=== PATIENT | female | born 1950 | race Caucasian/White ===

== ENCOUNTER 2021-05-11 02:52 | Observation (INO) | payer MEDICARE ==
[2021-05-11] MEDS ORDERED: SODIUM CHLORIDE 0.9% 1,000 ML IV STA (03:01)
--- NOTE | 2021-05-11 03:01 | ED ---
Arrhythmia/Palpitations HPI - General Chief Complaint: Arrhythmia/Palpitations Stated Complaint: Heart Issues Time Seen by Provider: 05/11/21 02:59 Source: patient, EMS, RN notes reviewed, old records reviewed Mode of arrival: EMS Limitations: no limitations - History of Present Illness Initial Comments: This is a 70-year-old female who presents today for evaluation of palpitations heart rate. Patient has no significant medical history but does admit to not following up with any physician primary care. Patient has chest pain currently with anxiety. No drugs or alcohol no other complaints MD Complaint: rapid heart beat, "heart racing", palpitations, irregular heart beat -: hour(s) Context: occurred during rest, awoke with symptoms Associated Symptoms: chest pain, shortness of breath, anxiety Treatments Prior to Arrival: other (none) - Related Data Allergies Allergy/AdvReac Type Severity Reaction Status Date / Time No Known Allergies Allergy Verified 05/11/21 03:00 Review of Systems ROS Statement: Those systems with pertinent positive or pertinent negative responses have been documented in the HPI. ROS Other: All systems not noted in ROS Statement are negative. Past Medical History Past Medical History: No Reported History Additional Past Medical History / Comment(s): last time pt was seen by a physician was 2002 History of Any Multi-Drug Resistant Organisms: None Reported Past Surgical History: Hysterectomy Past Psychological History: No Psychological Hx Reported Smoking Status: Former smoker Past Alcohol Use History: Occasional Past Drug Use History: None Reported General Exam Limitations: no limitations General appearance: alert, in no apparent distress, anxious Head exam: Present: atraumatic, normocephalic, normal inspection Eye exam: Present: normal appearance, PERRL, EOMI. Absent: scleral icterus, conjunctival injection, periorbital swelling ENT exam: Present: normal exam, mucous membranes moist Neck exam: Present: normal inspection. Absent: tenderness, meningismus, lymphadenopathy Respiratory exam: Present: normal lung sounds bilaterally. Absent: respiratory distress, wheezes, rales, rhonchi, stridor Cardiovascular Exam: Present: normal rhythm, tachycardia, normal heart sounds. Absent: systolic murmur, diastolic murmur, rubs, gallop, clicks GI/Abdominal exam: Present: soft, normal bowel sounds. Absent: distended, tenderness, guarding, rebound, rigid Extremities exam: Present: normal inspection, full ROM, normal capillary refill. Absent: tenderness, pedal edema, joint swelling, calf tenderness Back exam: Present: normal inspection Neurological exam: Present: alert, oriented X3, CN II-XII intact Psychiatric exam: Present: normal affect, normal mood Skin exam: Present: warm, dry, intact, normal color. Absent: rash Course Vital Signs 05/11/21 05/11/21 05/11/21 02:55 03:30 04:03 Temperature 98.0 F Pulse Rate 106 H 101 H 105 H Respiratory 18 18 18 Rate Blood Pressure 170/101 152/96 176/107 O2 Sat by Pulse 95 95 96 Oximetry 05/11/21 05/11/21 05/11/21 04:14 04:30 05:00 Temperature Pulse Rate 125 H 89 85 Respiratory 18 18 18 Rate Blood Pressure 174/102 151/92 145/84 O2 Sat by Pulse 94 L 94 L 96 Oximetry - Reevaluation(s) Reevaluation #1: 05/11/21 03:30 Medical records reviewed Reevaluation #2: 05/11/21 05:21 Medical patient has multiple EKGs without any change Reevaluation #3: 05/11/21 05:21 Patient symptoms are improved here in the ER Reevaluation #4: 05/11/21 05:21 Patient informed results and questions answered - Consultations Consultation #1: spoke with [facility] who agreed to admit this patient EKG Findings - EKG Comments: EKG Findings:: EKG shows sinus rhythm of 94 WY 196 QRS 80 QTC 447 - EKG Results: EKG: interpreted by ERMD (EKG shows sinus rhythm 85 WY 228 QRS 74 QTc 461) Medical Decision Making - Medical Decision Making 70 female DF for evaluation of chest pain palpitations also diuresis diaphoresis and shortness of breath. Patient does have sinus tachycardia here in the ER, given rate control blood pressure control which has improved that, patient be admitted for cardiac observation - Lab Data Result diagrams: 05/11/21 03:19 05/11/21 03:19 Lab Results 05/11/21 05/11/21 05/11/21 Range/Units 03:19 03:19 03:19 WBC 9.2 (3.8-10.6) k/uL RBC 5.19 (3.80-5.40) m/uL Hgb 15.5 (11.4-16.0) gm/dL Hct 46.1 H (34.0-46.0) % MCV 88.8 (80.0-100.0) fL MCH 29.8 (25.0-35.0) pg MCHC 33.6 (31.0-37.0) g/dL RDW 14.3 (11.5-15.5) % Plt Count 441 (150-450) k/uL MPV 7.6 Neutrophils % 73 % Lymphocytes % 16 % Monocytes % 5 % Eosinophils % 4 % Basophils % 1 % Neutrophils # 6.7 (1.3-7.7) k/uL Lymphocytes # 1.5 (1.0-4.8) k/uL Monocytes # 0.5 (0-1.0) k/uL Eosinophils # 0.4 (0-0.7) k/uL Basophils # 0.1 (0-0.2) k/uL PT 10.4 (9.0-12.0) sec INR 1.0 (<1.2) APTT 24.5 (22.0-30.0) sec Sodium 138 (137-145) mmol/L Potassium 3.5 (3.5-5.1) mmol/L Chloride 106 (98-107) mmol/L Carbon Dioxide 20 L (22-30) mmol/L Anion Gap 12 mmol/L BUN 17 (7-17) mg/dL Creatinine 0.59 (0.52-1.04) mg/dL Est GFR (CKD-EPI)AfAm >90 (>60 ml/min/1.73 sqM) Est GFR (CKD-EPI)NonAf >90 (>60 ml/min/1.73 sqM) Glucose 130 H (74-99) mg/dL Plasma Lactic Acid Db (0.7-2.0) mmol/L Calcium 9.6 (8.4-10.2) mg/dL Phosphorus 3.1 (2.5-4.5) mg/dL Magnesium 2.0 (1.6-2.3) mg/dL Total Bilirubin 0.6 (0.2-1.3) mg/dL AST 28 (14-36) U/L ALT 22 (4-34) U/L Alkaline Phosphatase 95 (38-126) U/L Troponin I (0.000-0.034) ng/mL NT-Pro-B Natriuret Pep pg/mL Total Protein 7.7 (6.3-8.2) g/dL Albumin 4.4 (3.5-5.0) g/dL 05/11/21 05/11/21 05/11/21 Range/Units 03:19 03:19 03:19 WBC (3.8-10.6) k/uL RBC (3.80-5.40) m/uL Hgb (11.4-16.0) gm/dL Hct (34.0-46.0) % MCV (80.0-100.0) fL MCH (25.0-35.0) pg MCHC (31.0-37.0) g/dL RDW (11.5-15.5) % Plt Count (150-450) k/uL MPV Neutrophils % % Lymphocytes % % Monocytes % % Eosinophils % % Basophils % % Neutrophils # (1.3-7.7) k/uL Lymphocytes # (1.0-4.8) k/uL Monocytes # (0-1.0) k/uL Eosinophils # (0-0.7) k/uL Basophils # (0-0.2) k/uL PT (9.0-12.0) sec INR (<1.2) APTT (22.0-30.0) sec Sodium (137-145) mmol/L Potassium (3.5-5.1) mmol/L Chloride (98-107) mmol/L Carbon Dioxide (22-30) mmol/L Anion Gap mmol/L BUN (7-17) mg/dL Creatinine (0.52-1.04) mg/dL Est GFR (CKD-EPI)AfAm (>60 ml/min/1.73 sqM) Est GFR (CKD-EPI)NonAf (>60 ml/min/1.73 sqM) Glucose (74-99) mg/dL Plasma Lactic Acid Db 1.1 (0.7-2.0) mmol/L Calcium (8.4-10.2) mg/dL Phosphorus (2.5-4.5) mg/dL Magnesium (1.6-2.3) mg/dL Total Bilirubin (0.2-1.3) mg/dL AST (14-36) U/L ALT (4-34) U/L Alkaline Phosphatase (38-126) U/L Troponin I <0.012 (0.000-0.034) ng/mL NT-Pro-B Natriuret Pep 83 pg/mL Total Protein (6.3-8.2) g/dL Albumin (3.5-5.0) g/dL - Radiology Data Radiology results: report reviewed (CT chest is negative for significant acute disease), image reviewed Critical Care Time Critical Care Time: Yes Total Critical Care Time: 31 Disposition Clinical Impression: Chest pain, Hypertension Disposition: ADMITTED IP TO THIS HOSP Condition: Fair Is patient prescribed a controlled substance at d/c from ED?: No Referrals: None,Stated [Primary Care Provider] - 1-2 days
[2021-05-11] MEDS ORDERED: ONDANSETRON 4 MG/2 ML VIAL IVP STA (03:28)
[2021-05-11 03:29] LABS: Basophils # (A) 0.1 k/uL (0-0.2); Basophils % (A) 1 %; Eosinophils # (A) 0.4 k/uL (0-0.7); Eosinophils % (A) 4 %; HCT 46.1 % (34.0-46.0); HGB 15.5 gm/dL (11.4-16.0); Lymphocytes # (A) 1.5 k/uL (1.0-4.8); Lymphocytes % (A) 16 %; MCH 29.8 pg (25.0-35.0); MCHC 33.6 g/dL (31.0-37.0); MCV 88.8 fL (80.0-100.0); Mean Platelet Volume 7.6; Monocytes # (A) 0.5 k/uL (0-1.0); Monocytes % (A) 5 %; Neutrophils # (A) 6.7 k/uL (1.3-7.7); Neutrophils % (A) 73 %; Platelet Count 441 k/uL (150-450); RBC 5.19 m/uL (3.80-5.40); RDW 14.3 % (11.5-15.5); WBC 9.2 k/uL (3.8-10.6)
[2021-05-11 03:40] LABS: ALT 22 U/L (4-34); AST 28 U/L (14-36); African American GFR (CKD) >90 (>60 ml/min/1.73 sqM); Albumin 4.4 g/dL (3.5-5.0); Alkaline Phosphatase 95 U/L (38-126); Anion Gap 12 mmol/L; Blood Urea Nitrogen 17 mg/dL (7-17); Calcium 9.6 mg/dL (8.4-10.2); Carbon Dioxide 20 mmol/L (22-30); Chloride 106 mmol/L (98-107); Glucose 130 mg/dL (74-99); Non-African American GFR(CKD) >90 (>60 ml/min/1.73 sqM); Phosphorus 3.1 mg/dL (2.5-4.5); Potassium 3.5 mmol/L (3.5-5.1); Sodium 138 mmol/L (137-145); Total Bilirubin 0.6 mg/dL (0.2-1.3); Total Protein 7.7 g/dL (6.3-8.2)
[2021-05-11 03:46] LABS: Partial Thromboplastin Time 24.5 sec (22.0-30.0); Prothrombin Time 10.4 sec (9.0-12.0)
[2021-05-11] MEDS ORDERED: LABETALOL 5 MG/ML VIAL MDV IVP STA (03:52)
--- NOTE | 2021-05-11 03:59 | XR ---
EXAMINATION TYPE: XR chest 2V DATE OF EXAM: 05/11/2021 COMPARISON: NONE HISTORY: Weakness TECHNIQUE: 2 view FINDINGS: There is large hiatal hernia. There is no heart failure. Lungs are clear of consolidation. Costophrenic angles are clear. There are chest leads. IMPRESSION: Large hiatal hernia. No acute lung disease.
--- NOTE | 2021-05-11 04:18 | CT ---
EXAMINATION TYPE: CT angio chest DATE OF EXAM: 05/11/2021 COMPARISON: None HISTORY: pain CT DLP: 402.7 mGycm Automated exposure control for dose reduction was used. CONTRAST: Performed with IV Contrast, patient injected with 100 mL of Isovue 370. Images obtained from the thoracic inlet to the diaphragm with IV contrast. There are 3-D post process ed images. The lungs are clear of consolidation. There is minimal subsegmental atelectasis at the lung bases. Th ere is very large hiatal hernia. There is almost intrathoracic stomach. There are multiple cysts in the liver that measure up to 10 cm. Bile ducts are nondilated. Gallbladde r appears normal. Spleen is intact. There is no sign of pancreatic mass. Heart size is normal. There is no pericardial effusion. There is normal contrast opacification of the pulmonary arteries. There are no filling defects. There is no mediastinal adenopathy. There are no h ilar masses. There is normal contrast in the thoracic aorta. There is no aneurysm or dissection. The thoracic spine is intact. IMPRESSION: Large hiatal hernia. No evidence of pulmonary embolism. Large hepatic cysts.
--- NOTE | 2021-05-11 04:31 | CT ---
EXAMINATION TYPE: CT abdomen pelvis w con DATE OF EXAM: 05/11/2021 COMPARISON: None HISTORY: pain CT DLP: 1323.6 mGycm Automated exposure control for dose reduction was used. CONTRAST: Performed with IV Contrast, patient injected with 100 mL of Isovue 370. Images obtained from the diaphragm to the floor the pelvis with IV contrast. Lung bases are clear. There is large hiatal hernia with intrathoracic stomach. There are multiple hep atic cysts that measure up to 10 cm. Bile ducts are not dilated. Gallbladder appears normal. Spleen i s intact. There is no adrenal mass. Stomach is not dilated. Kidneys show satisfactory contrast opacification. T here is no hydronephrosis. Ureters are not dilated. There is no retroperitoneal adenopathy. Bladder d istends smoothly. There is no inguinal hernia. There is no free fluid in the pelvis. There is no evid ence of a pelvic mass. The lumbar vertebra have normal alignment. There is degenerative disc space narrowing in the lumbar s pine and there is degenerative first-degree L4-5 spondylolisthesis. There is no compression fracture. The bony pelvis is intact. Hip joints are intact. There is no mesenteric edema. There is no ascites or free air. There is no bowel obstruction. Appendi x is medial and appears normal. Terminal ileum appears normal. IMPRESSION: No acute abnormality in the abdomen pelvis. Large hepatic cysts. Normal appendix. Large hiatal hernia. There is a L4-5 first-degree spondylolisthesis with moderate bony spinal stenosis at L4-5.
[2021-05-11] MEDS ORDERED: MORPHINE SULFATE 4 MG/ML SYRINGE IV PRN (05:19)
[2021-05-11] MEDS ORDERED: NITROGLYCERIN SL TABS 0.4 MG TAB SUBLINGUAL PRN (05:19)
[2021-05-11] MEDS ORDERED: ASPIRIN 81 MG PO STA (05:19)
[2021-05-11 05:36] LABS: Appearance,Urine Clear (Clear); Bilirubin,Urine Negative (Negative); Blood,Urine Negative (Negative); Color,Urine Light Yellow; Glucose,Urine (UA) Negative (Negative); Ketones,Urine 1+ (Negative); Leukocyte Esterase,Urine Negative (Negative); Nitrite,Urine Negative (Negative); Protein,Urine Negative (Negative); Specific Gravity,Urine 1.009 (1.001-1.035); Urobilinogen,Urine <2.0 mg/dL (<2.0)
[2021-05-11] MEDS ORDERED: METOPROLOL TARTRATE 25 MG TAB PO SCH (09:00)
--- NOTE | 2021-05-11 09:53 | P.CRDCN ---
History of Present Illness History of present illness: HISTORY OF PRESENTING ILLNESS This is a pleasant 70-year-old female past medical history significant for hysterectomy. 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 We have been asked to see in consultation for chest pain. Patient is seen and examined in the emergency department. She presents with 2 episodes of palpitations followed by dizziness, lightheadedness and shortness of breath yesterday. She states she also felt slightly diaphoretic. She had an episode yesterday which she states came on, lasted for a few hours and then resolved. She states last night the episode returned and she presented to the ER for further evaluation. She denies chest pain, weakness, syncope or pre-syncope. She denies symptoms of orthopnea or PND. She denies previous diagnosis of hypertension. Denies history of [place], stroke, coronary artery disease, diabetes. She denies any family history of heart disease. She denies tobacco use or alcohol use. She states she does try to stick to a low sodium, heart healthy diet. She has been stressed lately at home due to a recent move to [place]. On presentation to emergency department patient's blood pressure was 171/101, she was tachycardic HR 106. She was given IV 20mg Labetolol. Her BP has improved, she states she is feeling better. DIAGNOSTICS EKG reveals sinus tachycardia, T wave inversion in lead III. Second EKG with sinus rhythm with first degree AV block. Chest xray large hiatal hernia, no acute cardiopulmonary process. CT chest revealed large hiatal hernia, large hepatic cysts, no pulmonary embolism. Minimal subsegmental atelectasis in the lung bases. CT abdomen and pelvis revealed large hepatic cysts. Normal appendix. Large hiatal hernia. L45 first degree spondylolisthesis with moderate bony spinal stenosis L4 to L5 Laboratory reviewed, WBC 9.2, hemoglobin 15.5, platelets 441, sodium 138, potassium 3.5, BUN 17, serum 0.5, magnesium 2.0, troponin negative 2, proBNP 83, COVID-19 PCR negative. Current home medications include none. REVIEW OF SYSTEMS At the time of my exam: CONSTITUTIONAL: Denies fever or chills. CARDIOVASCULAR: +palpitations +shortness of breath Denies chest pain, orthopnea, PND RESPIRATORY: Denies cough. GASTROINTESTINAL: Denies abdominal pain, diarrhea, constipation, nausea or vomiting. MUSCULOSKELETAL: Denies myalgias. NEUROLOGIC: +lightheadedness, +dizziness Denies numbness, tingling, headache or weakness. ENDOCRINE: Denies fatigue, weight change, polydipsia or polyurina. GENITOURINARY: Denies burning, hematuria or urgency with micturation. HEMATOLOGIC: Denies history of anemia or bleeding. PHYSICAL EXAMINATION Blood pressure 139/95, heart rate 90, afebrile saturations greater than 92% on room air. CONSTITUTIONAL: No apparent distress. HEENT: Head is normocephalic. Pupils are equal, round. Sclerae anicteric. Mucous membranes of the mouth are moist. No JVD. No carotid bruit. CHEST EXAMINATION: Lungs are clear to auscultation. No chest wall tenderness is noted on palpation or with deep breathing. HEART EXAMINATION: Regular rate and rhythm. S1, S2 heard. No murmurs, gallops or rub. ABDOMEN: Soft, nontender. Positive bowel sounds. EXTREMITIES: 2+ peripheral pulses, no lower extremity edema and no calf tenderness. SKIN: warm, dry NEUROLOGIC EXAMINATION: Patient is awake, alert and oriented x3. ASSESSMENT Hypertensive Urgency History of hysterectomy PLAN Obtain 2D echocardiogram and doppler study to assess cardiac structure and function. Start lisinopril 5mg daily Start metoprolol succinate 25mg daily Check TSH Will monitor patient's blood pressure overnight, hopefully discharge in next 24 hours. Patient would benefit from a stress test, this can be done as an outpatient Thank you kindly for this consultation. Nurse Practitioner note has been reviewed, I agree with a documented findings and plan of care. Patient was seen and examined. Past Medical History Past Medical History: No Reported History Additional Past Medical History / Comment(s): last time pt was seen by a danieli an was 2002 History of Any Multi-Drug Resistant Organisms: None Reported Past Surgical History: Hysterectomy Past Psychological History: No Psychological Hx Reported Smoking Status: Former smoker Past Alcohol Use History: Occasional Past Drug Use History: None Reported Medications and Allergies Home Medications Medication Instructions Recorded Confirmed Type No Known Home Medications 05/11/21 05/11/21 History Allergies Allergy/AdvReac Type Severity Reaction Status Date / Time No Known Allergies Allergy Verified 05/11/21 07:03 Physical Exam Vitals: Vital Signs Temp Pulse Resp BP Pulse Ox 05/11/21 06:00 98.7 F 73 18 143/90 96 05/11/21 05:00 85 18 145/84 96 05/11/21 04:30 89 18 151/92 94 L 05/11/21 04:14 125 H 18 174/102 94 L 05/11/21 04:03 105 H 18 176/107 96 05/11/21 03:30 101 H 18 152/96 95 05/11/21 02:55 98.0 F 106 H 18 170/101 95 Intake and Output 05/10/21 05/11/21 05/11/21 22:59 06:59 14:59 Other: Weight 86.183 kg Results 05/11/21 03:19 05/11/21 03:19 Cardiac Enzymes 05/11/21 05/11/21 Range/Units 03:19 03:19 AST 28 (14-36) U/L Troponin I <0.012 (0.000-0.034) ng/mL Coagulation 05/11/21 Range/Units 03:19 PT 10.4 (9.0-12.0) sec APTT 24.5 (22.0-30.0) sec CBC 05/11/21 Range/Units 03:19 WBC 9.2 (3.8-10.6) k/uL RBC 5.19 (3.80-5.40) m/uL Hgb 15.5 (11.4-16.0) gm/dL Hct 46.1 H (34.0-46.0) % Plt Count 441 (150-450) k/uL Comprehensive Metabolic Panel 05/11/21 Range/Units 03:19 Sodium 138 (137-145) mmol/L Potassium 3.5 (3.5-5.1) mmol/L Chloride 106 (98-107) mmol/L Carbon Dioxide 20 L (22-30) mmol/L BUN 17 (7-17) mg/dL Creatinine 0.59 (0.52-1.04) mg/dL Glucose 130 H (74-99) mg/dL Calcium 9.6 (8.4-10.2) mg/dL AST 28 (14-36) U/L ALT 22 (4-34) U/L Alkaline Phosphatase 95 (38-126) U/L Total Protein 7.7 (6.3-8.2) g/dL Albumin 4.4 (3.5-5.0) g/dL Current Medications Generic Name Dose Route Start Last Admin Trade Name Freq PRN Reason Stop Dose Admin Aspirin 325 mg 05/12/21 09:00 Aspirin 325 Mg Tab PO DAILY [facility] Metoprolol Tartrate 25 mg 05/11/21 09:00 Metoprolol Tartrate 25 Mg Tab PO BID [facility] Morphine Sulfate 4 mg 05/11/21 05:19 Morphine Sulfate 4 Mg/Ml Syringe IV Q4HR PRN Chest Pain Nitroglycerin 0.4 mg 05/11/21 05:19 Nitroglycerin Sl Tabs 0.4 Mg Tab SUBLINGUAL Q5M PRN Chest Pain Intake and Output 05/10/21 05/11/21 05/11/21 22:59 06:59 14:59 Other: Weight 86.183 kg 05/11/21 03:19 05/11/21 03:19
--- NOTE | 2021-05-11 10:10 | ECHOF ---
Referral Reason:cp MEASUREMENTS -------- HEIGHT: 165.1 cm WEIGHT: 86.2 kg BP: 143/90 RVIDd: 2.9 cm (< 3.3) IVSd: 1.0 cm (0.6 - 1.1) LVIDd: 4.3 cm (3.9 - 5.3) LVPWd: 1.0 cm (0.6 - 1.1) IVSs: 1.5 cm LVIDs: 2.8 cm LVPWs: 1.5 cm LA Diam: 3.4 cm (2.7 - 3.8) LAESV Index (A-L): 26.65 ml/m Ao Diam: 3.0 cm (2.0 - 3.7) AV Cusp: 2.2 cm (1.5 - 2.6) MV EXCURSION: 15.488 mm (> 18.000) MV EF SLOPE: 88 mm/s (70 - 150) EPSS: 0.4 cm MV E Stefan: 1.01 m/s MV DecT: 189 ms MV A Stefan: 1.30 m/s MV E/A Ratio: 0.78 RAP: 5.00 mmHg RVSP: 28.81 mmHg FINDINGS -------- Sinus rhythm. This was a technically good study. The left ventricular size is normal. Left ventricular wall thickness is normal. Overall left vent ricular systolic function is normal with, an EF between 60 - 65 %. The right ventricle is normal in size. The left atrium is normal in size. The right atrium is normal in size. Interatrial and interventricular septum intact. The aortic valve is trileaflet, and appears structurally normal. No aortic stenosis or regurgitation. There is trace to mild mitral regurgitation. Trace tricuspid regurgitation present. Right ventricular systolic pressure is normal at < 35 mmHg. There is no pulmonic regurgitation present. Large hepatic cyst was seen The aortic root size is normal. Normal inferior vena cava with normal inspiratory collapse consistent with estimated right atrial pre ssure of 5 mmHg. There is no pericardial effusion. CONCLUSIONS -------- 1. The left ventricular size is normal. 2. Left ventricular wall thickness is normal. 3. Overall left ventricular systolic function is normal with, an EF between 60 - 65 %. 4. The aortic valve is trileaflet, and appears structurally normal. No aortic stenosis or regurgitati on. 5. There is trace to mild mitral regurgitation. 6. Trace tricuspid regurgitation present. 7. Large hepatic cyst was seen 8. There is no pericardial effusion. ENVIRONMENTAL LABORATORY TECHNICIAN: Wendy Murry RDCS
--- NOTE | 2021-05-11 11:50 | P.HPIM ---
History of Present Illness Patient is a pleasant 70 the female came in with complaints of palpitations. Patient will also comparing of some mild lightheadedness and dizziness and patient felt anxious. Patient denied any history of coronary artery disease. P atient denied any chest pain to me although as per cardiology patient did complain of chest pain to them. Patient had episodes of palpitations at that time patient had appears to have an episode of SVT. Patient is being started on beta robbie. Patient denied any fever chills nausea vomiting abdominal pain dysuria diarrhea REVIEW OF SYSTEMS: CONSTITUTIONAL: No fever, no malaise, no fatigue. HEENT: No recent visual problems or hearing problems. Denied any sore throat. CARDIOVASCULAR: No chest pain, orthopnea, PND, no syncope. PULMONARY: No shortness of breath, no cough, no hemoptysis. GASTROINTESTINAL: No diarrhea, no nausea, no vomiting, no abdominal pain. NEUROLOGICAL: No headaches, no weakness, no numbness. HEMATOLOGICAL: Denies any bleeding or petechiae. GENITOURINARY: Denies any burning micturition, frequency, or urgency. MUSCULOSKELETAL/RHEUMATOLOGICAL: Denies any joint pain, swelling, or any muscle pain. ENDOCRINE: Denies any polyuria or polydipsia. The rest of the 14-point review of systems is negative. PHYSICAL EXAMINATION: GENERAL: The patient is alert and oriented x3, not in any acute distress. Well developed, well nourished. HEENT: Pupils are round and equally reacting to light. EOMI. No scleral icterus. No conjunctival pallor. Normocephalic, atraumatic. No pharyngeal erythema. No thyromegaly. CARDIOVASCULAR: S1 and S2 present. No murmurs, rubs, or gallops. PULMONARY: Chest is clear to auscultation, no wheezing or crackles. ABDOMEN: Soft, nontender, nondistended, normoactive bowel sounds. No palpable organomegaly. MUSCULOSKELETAL: No joint swelling or deformity. EXTREMITIES: No cyanosis, clubbing, or pedal edema. NEUROLOGICAL: Gross neurological examination did not reveal any focal deficits. SKIN: No rashes. Assessment and plan -Palpitations: Possibly of the supra ventricular tachycardia continue with the metoprolol -Hypertension uncontrolled elevated blood pressure hypertensive urgency patient will be started on TRINI inhibitor patient will monitored overnight echocardiogram will be obtained possibly of discharge tomorrow Cardiology recommending stress test as an outpatient DVT prophylaxis: Ambulation Past Medical History Past Medical History: No Reported History Additional Past Medical History / Comment(s): last time pt was seen by a physician was 2002 History of Any Multi-Drug Resistant Organisms: None Reported Past Surgical History: Hysterectomy Past Psychological History: No Psychological Hx Reported Smoking Status: Former smoker Past Alcohol Use History: Occasional Past Drug Use History: None Reported Medications and Allergies Home Medications Medication Instructions Recorded Confirmed Type No Known Home Medications 05/11/21 05/11/21 History Allergies Allergy/AdvReac Type Severity Reaction Status Date / Time No Known Allergies Allergy Verified 05/11/21 07:03 Physical Exam Vitals: Vital Signs Temp Pulse Resp BP Pulse Ox 05/11/21 09:02 90 159/95 94 L 05/11/21 06:00 98.7 F 73 18 143/90 96 05/11/21 05:00 85 18 145/84 96 05/11/21 04:30 89 18 151/92 94 L 05/11/21 04:14 125 H 18 174/102 94 L 05/11/21 04:03 105 H 18 176/107 96 05/11/21 03:30 101 H 18 152/96 95 05/11/21 02:55 98.0 F 106 H 18 170/101 95 Intake and Output 05/10/21 05/11/21 05/11/21 22:59 06:59 14:59 Other: Weight 86.183 kg Results CBC & Chem 7: 05/11/21 03:19 05/11/21 03:19 Labs: Abnormal Lab Results - Last 24 Hours (Table) 05/11/21 05/11/21 05/11/21 Range/Units 03:19 03:19 03:19 Hct 46.1 H (34.0-46.0) % Carbon Dioxide 20 L (22-30) mmol/L Glucose 130 H (74-99) mg/dL Urine Ketones 1+ H (Negative)
[2021-05-11] MEDS: lisinopriL 5 MG TAB PO SCH (12:45)
[2021-05-11] MEDS: METOPROLOL SUCCINATE (ER) 25 MG TAB.ER.24H PO SCH (12:45)
[2021-05-12 02:19] VITALS: RESP 16
[2021-05-12 06:37] LABS: African American GFR (CKD) >90 (>60 ml/min/1.73 sqM); Anion Gap 6 mmol/L; Blood Urea Nitrogen 13 mg/dL (7-17); Calcium 9.2 mg/dL (8.4-10.2); Carbon Dioxide 24 mmol/L (22-30); Chloride 109 mmol/L (98-107); Glucose 106 mg/dL (74-99); Non-African American GFR(CKD) >90 (>60 ml/min/1.73 sqM); Potassium 4.1 mmol/L (3.5-5.1); Sodium 139 mmol/L (137-145)
[2021-05-12 07:48] VITALS: BP 137/82; PULSE 69; TEMP 98.2
[2021-05-12] MEDS ORDERED: ASPIRIN 325 MG TAB PO SCH (09:00)
[2021-05-12] MEDS ORDERED: ASPIRIN 81 MG PO SCH (09:00)
[2021-05-12] MEDS: METOPROLOL SUCCINATE (ER) 25 MG TAB.ER.24H PO SCH (09:49)
[2021-05-12] MEDS: lisinopriL 5 MG TAB PO SCH (09:49)
[2021-05-12 10:58] LABS: Chol/HDL Ratio 2.8 Ratio; HDL Cholesterol 60.8 mg/dL (40.00-60.00); LDL Cholesterol,Calculated 93.3 mg/dL (0.0-131.0); Triglycerides 79.7 mg/dL (0.00-149.00); VLDL Calculation 15.94 mg/dL (5.00-40.00)
--- NOTE | 2021-05-12 11:06 | P.PN ---
Subjective This is a pleasant 70-year-old female past medical history significant for hysterectomy. 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 We have been asked to see in consultation for chest pain. Patient is seen and examined in the emergency department. She presents with 2 episodes of palpitations followed by dizziness, lightheadedness and shortness of breath. Patient found to be tachycardic and hypertensive. She was found to have an episode of supraventricular tachycardia, she was given 20mg IV Lopressor. She was started on metoprolol succinate 25 mg daily and lisinopril 5 mg daily. Telemetry reviewed patient is a sinus mechanism, no evidence of arrhythmia or tachycardia arrhythmias. Her blood pressure is improved. She states she is feeling much better. She denies any chest pain, lightheadedness, dizziness, palpitations, shortness of breath. Labs reviewed, sodium 139, potassium 4.1, BUN 13, serum creatinine 0.5, troponin negative 3, triglycerides 79, cholesterol 170, LDL 93, HDL 60, TSH within normal limits. Echocardiogram revealed EF 6065 percent, trace to mild mitral regurgitation, trace tricuspid regurgitation. PHYSICAL EXAMINATION Blood pressure 137/82, heart 69, afebrile maintaining oxygen saturations on room air CONSTITUTIONAL: No apparent distress. HEENT: Neck Supple. No JVD. CHEST EXAMINATION: Lungs are clear to auscultation. No chest wall tenderness is noted on palpation or with deep breathing. HEART EXAMINATION: Regular rate and rhythm. S1, S2 heard. No murmurs, gallops or rub. ABDOMEN: Soft, nontender. Positive bowel sounds. EXTREMITIES: 2+ peripheral pulses, no lower extremity edema and no calf tenderness. SKIN: warm, dry NEUROLOGIC EXAMINATION: Patient is awake, alert and oriented x3. ASSESSMENT Hypertensive Urgency SVT History of hysterectomy Dyslipidemia PLAN Continue lisinopril 5mg daily and metoprolol succinate 25mg daily Patient's with 15% 10 year ASCVD risk, will start patient on statin From a cardiology perspective, patient stable and discharged home. Patient will follow up with Dr. Barnett in the office, and undergo a stress test as an outpatient. Nurse Practitioner note has been reviewed, I agree with a documented findings and plan of care. Patient was seen and examined. Objective - Vital Signs Vital signs: Vital Signs Temp 98.2 F 05/12/21 07:00 Pulse 69 05/12/21 07:00 Resp 16 05/12/21 07:00 BP 137/82 05/12/21 07:00 Pulse Ox 95 05/12/21 07:00 Intake & Output 05/11/21 05/12/21 05/12/21 18:59 06:59 18:59 Intake Total 120 180 Balance 120 180 Weight 86.183 kg Intake: Oral 120 180 Other: Voiding Method Toilet # Voids 3 - Labs CBC & Chem 7: 05/11/21 03:19 05/12/21 05:46 Labs: Abnormal Lab Results - Last 24 Hours (Table) 05/12/21 Range/Units 05:46 Chloride 109 H (98-107) mmol/L Glucose 106 H (74-99) mg/dL
--- NOTE | 2021-05-12 22:15 | P.DS ---
Providers Date of admission: 05/11/21 05:20 Attending physician: Corrie Ricketts Consults: 05/11/21 05:19 Consult Physician Urgent Consulting Provider: Boris Young Consult Reason/Comments: htn,cp Do you want consulting provider notified?: Yes Primary care physician: Stated None Hospital Course: Final Diagnosis -Hypertensive urgency -Palpitations due to SVT -History of hysterectomy Discharge Disposition Patient is discharged home in a stable condition. She is cleared by cardiology and was started on lisinopril 5 mg po daily and metoprolol succinate 25 mg po daily. She will follow up with cardiology in the office. She has not been seen in a primary care office since 2002, we recommended a PCP for her. Hospital Course This is a pleasant 70 year old female who presents to the emergency center with complaints of 2 episodes of palpitations followed by dizziness, lightheadedness and shortness of breath. She also complained of chest pain. This spontaneously resolved and then patient experienced a second episode and she came into the ER. Patient recently moved to the [facility], and does not follow with a primary care physician. She denies any significant cardiac medical history. She does not smoke or drink, and denies any illicit substance use. Her past medical history is significant for hysterectomy. Labs on admission show a unremarkable blood count panel, hematocrit is elevated to 46.1. CO2 was 20 on admission, normalized to 24. Glucose was 130 and 106 respectively. We would recommend follow up with an A1C outpatient. Troponins were negative x 3. Pro BNP level was 83. TSH is on the lower side of normal at 0.878. Cholesterol panel includes a cholesterol level of 170, triglycerides of 79, LDL 93.3, HDL 60.080. Urinalysis shows 1+ ketones. COVID not detected. Chest xray is negative for acute lung disease, shows a large hiatal hernia. Chest CTA shows large hiatal hernia, large hepatic cysts, and no evidence for PE. Abdomen/Pelvis CT: no acute abnormality in the abdomen pelvis. Echocardiogram shows an EF of 60 to 65% with trace mild and trace tricuspid regurgitation. Patient did have an episode of SVT in the EC and was treated with IV lopressor and started on metoprolol succinate 25 mg po daily as well as lisinopril 5 mg po daily. Patient was cleared by cardiology who recommended to start patient on a statin and she will follow up in the office. Recommendations for a stress test outpatient. 05/12/2021 Patient evaluted today the bedside. She is alert and oriented x3. Denies chest pain, chest pressure, palpitations. She denies and cough or shortness of breath. Lungs are clear to auscultation, S1 and S2 heard. Focal Neurological exam is negative. Patient is cleared by cardiology for discharge. Vital signs today show a BP of 137/82, Heart rate of 69, temp of 98.2, and she is 95% on room air. Please see medication reconciliation for a list of current medications. Thank you for allowing us to participate in the care of this patient. Patient Condition at Discharge: Stable Plan - Discharge Summary Discharge Rx Participant: Yes New Discharge Prescriptions: New Atorvastatin [Lipitor] 20 mg PO HS 30 Days #30 tablet Metoprolol Succinate (ER) [Toprol XL] 25 mg PO DAILY 30 Days #30 tablet lisinopriL [Zestril] 5 mg PO DAILY 30 Days #30 tab Discharge Medication List Atorvastatin [Lipitor] 20 mg PO HS 30 Days #30 tablet 05/12/21 [Rx] Metoprolol Succinate (ER) [Toprol XL] 25 mg PO DAILY 30 Days #30 tablet 05/12/21 [Rx] lisinopriL [Zestril] 5 mg PO DAILY 30 Days #30 tab 05/12/21 [Rx] Follow up Appointment(s)/Referral(s): Yaw Barnett MD [STAFF PHYSICIAN] - 05/31/21 10:00 am Cayden Lopez III, MD [STAFF PHYSICIAN] - 1 Week Activity/Diet/Wound Care/Special Instructions: Please make appointment to follow up with Dr. Lopez. Discharge Disposition: HOME SELF-CARE
== END 2021-05-12 10:55 | disposition home or self-care (01) ==
LOC: EC 02:52 → 6NMEDSUR 05:20
PROVIDERS: ADMIT Hospitalist; ATTEND Hospitalist
DX: I16.0 Hypertensive urgency (principal); I47.1 Supraventricular tachycardia; I44.0 Atrioventricular block, first degree; I10 Essential (primary) hypertension; I34.0 Nonrheumatic mitral (valve) insufficiency; E78.5 Hyperlipidemia, unspecified; F41.9 Anxiety disorder, unspecified; K44.9 Diaphragmatic hernia without obstruction or gangrene; K76.89 Other specified diseases of liver; M43.16 Spondylolisthesis, lumbar region; M48.061 Spinal stenosis, lumbar region without neurogenic claudication; Z20.822 Contact with and (suspected) exposure to COVID-19; Z87.891 Personal history of nicotine dependence; Z90.710 Acquired absence of both cervix and uterus
CPT/HCPCS: 96374; 96375; 99291; 36415; 93005; 93306; 83880; 80061; 80053; 80048; 84443; 83605; 83735; 84100; 84484; 85025; 85610; 85730; 81003; 87635; 71046; 71275; 74177; G0378 ×2; J2405; Q9967

== ENCOUNTER 2021-05-15 07:41 | Observation (INO) | payer MEDICARE ==
--- NOTE | 2021-05-15 08:17 | ED ---
General Adult HPI - General Chief complaint: Arrhythmia/Palpitations Stated complaint: Rapid heart beat, hypertension Time Seen by Provider: 05/15/21 07:50 Source: patient, RN notes reviewed, old records reviewed Mode of arrival: wheelchair Limitations: physical limitation - History of Present Illness Initial comments: This is a 70-year-old female presents emergency Department with a sensation that her heart was racing. Patient states it occurred recently she was in the hospital overnight for. Patient states she was not sent home with a monitor. Patient states since then it occurred 3 times. Patient states last night it occurred and lasted approximately 1 minute she felt a little lightheaded and dizzy she states after it occurs about an hour she feels a little lightheaded and nauseated. Patient states at no time did she have any chest pain or discomfort. Patient denies any fever chills. Patient denies any abdominal pain patient denies nausea vomiting or diarrhea. Patient has a swollen to the legs or calf tenderness. Patient states currently she is at her baseline and has no complaints. - Related Data Previous Rx's Medication Instructions Recorded Atorvastatin [Lipitor] 20 mg PO HS 30 Days #30 tablet 05/12/21 Metoprolol Succinate (ER) [Toprol 25 mg PO DAILY 30 Days #30 tablet 05/12/21 XL] lisinopriL [Zestril] 5 mg PO DAILY 30 Days #30 tab 05/12/21 Allergies Allergy/AdvReac Type Severity Reaction Status Date / Time No Known Allergies Allergy Verified 05/15/21 07:49 Review of Systems ROS Statement: Those systems with pertinent positive or pertinent negative responses have been documented in the HPI. ROS Other: All systems not noted in ROS Statement are negative. Past Medical History Past Medical History: Hyperlipidemia, Hypertension Additional Past Medical History / Comment(s): last time pt was seen by a physician was 2002 History of Any Multi-Drug Resistant Organisms: None Reported Past Surgical History: Hysterectomy Past Psychological History: No Psychological Hx Reported Smoking Status: Former smoker Past Alcohol Use History: Occasional Past Drug Use History: None Reported General Exam - General Exam Comments Initial Comments: GENERAL: Patient is well-developed and well-nourished. Patient is nontoxic and well- hydrated and is in no acute distress. ENT: Neck is soft and supple. No significant lymphadenopathy is noted. Oropharynx is clear. Moist mucous membranes. Neck has full range of motion without eliciting any pain. EYES: The sclera were anicteric and conjunctiva were pink and moist. Extraocular movements were intact and pupils were equal round and reactive to light. Eyelids were unremarkable. PULMONARY: Unlabored respirations. Good breath sounds bilaterally. No audible rales rhonchi or wheezing was noted. CARDIOVASCULAR: There is a regular rate and rhythm without any murmurs gallops or rubs. ABDOMEN: Soft and nontender with normal bowel sounds. SKIN: Skin is clear with no lesions or rashes and otherwise unremarkable. NEUROLOGIC: Patient is alert and oriented 3 cranial nerves II through XII are grossly intact motor and sensory are also intact MUSCULOSKELETAL: Normal extremities with adequate strength and full range of motion. No lower extremity swelling or edema. No calf tenderness. LYMPHATICS: No significant lymphadenopathy is noted PSYCHIATRIC: Normal psychiatric evaluation. Limitations: physical limitation Course Vital Signs 05/15/21 05/15/21 05/15/21 07:45 08:10 10:00 Temperature 98.1 F Pulse Rate 110 H 106 H 85 Respiratory 18 18 15 Rate Blood Pressure 160/94 161/105 160/101 O2 Sat by Pulse 98 96 96 Oximetry Medical Decision Making - Medical Decision Making EKG shows normal sinus rhythm at 99 bpm [place] interval 198 QRS is 78 QT interval 350 QTC is 449 per patient's EKG shows no ST segment elevation or depression. Patient's chest x-ray shows no acute abnormality. Patient had no palpitations while in the emergency department. I spoke with Dr. Tejada he agreed to admit the patient admitted the patient wrote admitting orders. - Lab Data Result diagrams: 05/15/21 08:28 05/15/21 08:28 Lab Results 05/15/21 05/15/21 05/15/21 Range/Units 08:28 08:28 08:28 WBC 8.2 (3.8-10.6) k/uL RBC 5.16 (3.80-5.40) m/uL Hgb 15.3 (11.4-16.0) gm/dL Hct 46.4 H (34.0-46.0) % MCV 89.8 (80.0-100.0) fL MCH 29.6 (25.0-35.0) pg MCHC 32.9 (31.0-37.0) g/dL RDW 13.4 (11.5-15.5) % Plt Count 432 (150-450) k/uL MPV 6.9 Neutrophils % 70 % Lymphocytes % 19 % Monocytes % 5 % Eosinophils % 3 % Basophils % 1 % Neutrophils # 5.7 (1.3-7.7) k/uL Lymphocytes # 1.6 (1.0-4.8) k/uL Monocytes # 0.4 (0-1.0) k/uL Eosinophils # 0.3 (0-0.7) k/uL Basophils # 0.1 (0-0.2) k/uL PT 10.7 (9.0-12.0) sec INR 1.0 (<1.2) APTT 25.0 (22.0-30.0) sec Sodium 141 (137-145) mmol/L Potassium 3.9 (3.5-5.1) mmol/L Chloride 109 H (98-107) mmol/L Carbon Dioxide 21 L (22-30) mmol/L Anion Gap 11 mmol/L BUN 16 (7-17) mg/dL Creatinine 0.58 (0.52-1.04) mg/dL Est GFR (CKD-EPI)AfAm >90 (>60 ml/min/1.73 sqM) Est GFR (CKD-EPI)NonAf >90 (>60 ml/min/1.73 sqM) Glucose 110 H (74-99) mg/dL Calcium 9.7 (8.4-10.2) mg/dL Magnesium 2.0 (1.6-2.3) mg/dL Total Bilirubin 0.8 (0.2-1.3) mg/dL AST 24 (14-36) U/L ALT 18 (4-34) U/L Alkaline Phosphatase 89 (38-126) U/L Troponin I (0.000-0.034) ng/mL Total Protein 7.2 (6.3-8.2) g/dL Albumin 4.1 (3.5-5.0) g/dL TSH 1.410 (0.465-4.680) mIU/L Coronavirus (PCR) (Not Detectd) 05/15/21 05/15/21 Range/Units 08:28 08:33 WBC (3.8-10.6) k/uL RBC (3.80-5.40) m/uL Hgb (11.4-16.0) gm/dL Hct (34.0-46.0) % MCV (80.0-100.0) fL MCH (25.0-35.0) pg MCHC (31.0-37.0) g/dL RDW (11.5-15.5) % Plt Count (150-450) k/uL MPV Neutrophils % % Lymphocytes % % Monocytes % % Eosinophils % % Basophils % % Neutrophils # (1.3-7.7) k/uL Lymphocytes # (1.0-4.8) k/uL Monocytes # (0-1.0) k/uL Eosinophils # (0-0.7) k/uL Basophils # (0-0.2) k/uL PT (9.0-12.0) sec INR (<1.2) APTT (22.0-30.0) sec Sodium (137-145) mmol/L Potassium (3.5-5.1) mmol/L Chloride (98-107) mmol/L Carbon Dioxide (22-30) mmol/L Anion Gap mmol/L BUN (7-17) mg/dL Creatinine (0.52-1.04) mg/dL Est GFR (CKD-EPI)AfAm (>60 ml/min/1.73 sqM) Est GFR (CKD-EPI)NonAf (>60 ml/min/1.73 sqM) Glucose (74-99) mg/dL Calcium (8.4-10.2) mg/dL Magnesium (1.6-2.3) mg/dL Total Bilirubin (0.2-1.3) mg/dL AST (14-36) U/L ALT (4-34) U/L Alkaline Phosphatase (38-126) U/L Troponin I <0.012 (0.000-0.034) ng/mL Total Protein (6.3-8.2) g/dL Albumin (3.5-5.0) g/dL TSH (0.465-4.680) mIU/L Coronavirus (PCR) Not Detected (Not Detectd) Disposition Clinical Impression: Palpitations Disposition: [facility] Referrals: None,Stated [Primary Care Provider] - 1-2 days Time of Disposition: 10:14
[2021-05-15 08:36] LABS: Basophils # (A) 0.1 k/uL (0-0.2); Basophils % (A) 1 %; Eosinophils # (A) 0.3 k/uL (0-0.7); Eosinophils % (A) 3 %; HCT 46.4 % (34.0-46.0); HGB 15.3 gm/dL (11.4-16.0); Lymphocytes # (A) 1.6 k/uL (1.0-4.8); Lymphocytes % (A) 19 %; MCH 29.6 pg (25.0-35.0); MCHC 32.9 g/dL (31.0-37.0); MCV 89.8 fL (80.0-100.0); Mean Platelet Volume 6.9; Monocytes # (A) 0.4 k/uL (0-1.0); Monocytes % (A) 5 %; Neutrophils # (A) 5.7 k/uL (1.3-7.7); Neutrophils % (A) 70 %; Platelet Count 432 k/uL (150-450); RBC 5.16 m/uL (3.80-5.40); RDW 13.4 % (11.5-15.5); WBC 8.2 k/uL (3.8-10.6)
[2021-05-15 08:46] LABS: ALT 18 U/L (4-34); AST 24 U/L (14-36); African American GFR (CKD) >90 (>60 ml/min/1.73 sqM); Albumin 4.1 g/dL (3.5-5.0); Alkaline Phosphatase 89 U/L (38-126); Anion Gap 11 mmol/L; Blood Urea Nitrogen 16 mg/dL (7-17); Calcium 9.7 mg/dL (8.4-10.2); Carbon Dioxide 21 mmol/L (22-30); Chloride 109 mmol/L (98-107); Glucose 110 mg/dL (74-99); Non-African American GFR(CKD) >90 (>60 ml/min/1.73 sqM); Potassium 3.9 mmol/L (3.5-5.1); Sodium 141 mmol/L (137-145); Total Bilirubin 0.8 mg/dL (0.2-1.3); Total Protein 7.2 g/dL (6.3-8.2)
--- NOTE | 2021-05-15 08:47 | XR ---
EXAMINATION TYPE: XR chest 2V DATE OF EXAM: 05/15/2021 COMPARISON: 05/11/2021 HISTORY: Dysrhythmia TECHNIQUE: Frontal and lateral views of the chest are obtained. FINDINGS: The lungs are clear of consolidative, interstitial or masslike opacity. There is no pleural effusion, pleural thickening or pneumothorax. Heart size is normal and the pulmonary vasculature is not congested. There is a large hiatal hernia with air-fluid level is seen previously. The osseous structures are intact IMPRESSION: No acute cardiopulmonary disease. There is a large hernia containing air-fluid level. Th ere is been no interval change since the prior study.
[2021-05-15 08:53] LABS: Prothrombin Time 10.7 sec (9.0-12.0)
[2021-05-15] MEDS ORDERED: NITROGLYCERIN SL TABS 0.4 MG TAB SUBLINGUAL PRN (10:14)
[2021-05-15] MEDS ORDERED: lisinopriL 5 MG TAB PO STA (11:13)
[2021-05-15] MEDS ORDERED: METOPROLOL SUCCINATE (ER) 25 MG TAB.ER.24H PO STA (11:14)
--- NOTE | 2021-05-16 00:32 | P.HPIM ---
History of Present Illness H&P Date: 05/15/21 Chief Complaint: Heart racing up fast Patient is a 70-year-old female with a known history of hypertension, hyperlipidemia and recent admission with SVT and hypertensive urgency, was discharged on 05/12/2021 presented to hospital ER with complaints of palpitations/heart racing or fast. Last night patient did have palpitations and also started again this morning which made her to come to ER. Patient felt dizzy and nauseated. No diaphoresis. Denied any chest pain or shortness of. No fever no chills. Denies any leg swelling. During this admission patient had 2D echocardiogram which showed normal ejection fraction and no significant valvular abnormalities noted. Patient was discharged home on metoprolol and lisinopril. Chest x-ray showed no acute cardiopulmonary disease. There is a large hernia containing air-fluid level. There has been no interval change since prior study. EKG showed normal sinus rhythm. Laboratory showed WBC 8.2 hemoglobin 15.3 and platelets 432 and sodium 141 potassium 3.9 chloride 109 bicarb is 21 BUN 16 and creatinine 0.58 and liver enzymes are not elevated Troponin x3 - and TSH level is 1.410 COVID-19 PCR not detected. Review of Systems Constitutional: Patient denies any fever or chills . No generalized weakness or weight loss. Abdomen: Patient denied nausea vomiting and diarrhea and abdominal pain. Cardiovascular: Patient denies any chest pain or short of breath. + pal pitations. Respiratory: patient denied any cough or sputum production. No shortness of breath Neurologic: Patient denied any numbness or tingling headache. Musculoskeletal: Patient denies any complaints of joint swelling or deformity. Skin: Negative Psychiatric: Negative Endocrine: No heat or cold intolerance. No recent weight gain. Genitourinary: No dysuria or hematuria. All other 14 point ROS negative except the above Past Medical History Past Medical History: Hyperlipidemia, Hypertension Additional Past Medical History / Comment(s): last time pt was seen by a physician was 2002 History of Any Multi-Drug Resistant Organisms: None Reported Past Surgical History: Hysterectomy Past Psychological History: No Psychological Hx Reported Smoking Status: Former smoker Past Alcohol Use History: Occasional Past Drug Use History: None Reported Medications and Allergies Home Medications Medication Instructions Recorded Confirmed Type Atorvastatin [Lipitor] 20 mg PO HS 30 Days #30 tablet 05/12/21 05/15/21 Rx Metoprolol Succinate (ER) [Toprol 25 mg PO DAILY 30 Days #30 tablet 05/12/21 05/15/21 Rx XL] lisinopriL [Zestril] 5 mg PO DAILY 30 Days #30 tab 05/12/21 05/15/21 Rx Allergies Allergy/AdvReac Type Severity Reaction Status Date / Time No Known Allergies Allergy Verified 05/15/21 10:54 Physical Exam Vitals: Vital Signs Temp Pulse Pulse Resp BP BP Pulse Ox 05/15/21 19:25 98.1 F 72 22 128/77 97 05/15/21 14:57 98.3 F 84 18 128/75 97 05/15/21 11:50 98.1 F 70 16 144/88 97 05/15/21 11:28 77 153/88 97 05/15/21 11:00 87 20 142/85 96 05/15/21 10:00 85 15 160/101 96 05/15/21 08:10 106 H 18 161/105 96 05/15/21 07:45 98.1 F 110 H 18 160/94 98 Intake and Output 05/15/21 05/15/21 05/15/21 06:59 14:59 22:59 Other: Voiding Method Toilet # Voids 1 Weight 86.183 kg PHYSICAL EXAMINATION: Patient is lying in the bed comfortably, no acute distress, awake alert and oriented.. HEENT: Normocephalic. Neck is supple. Pupils reactive. Nostrils clear. Oral cavity is moist. Neck reveals no JVD, carotid bruits, or thyromegaly. CHEST EXAMINATION: Trachea is central. Symmetrical expansion. Lung sullivan clear to auscultation and percussion. CARDIAC: Normal S1, S2 with no gallops. No murmurs ABDOMEN: Soft. Bowel sounds normal. No organomegaly. No abdominal bruits. Extremities: reveal no edema. No clubbing or cyanosis Neurologically awake, alert, oriented x3 with well-coordinated movements. No focal deficits noted Skin: No rash or skin lesions. Psychiatric: Cooperative. Nonsuicidal Musculoskeletal: No joint swelling or deformity. Normal range of motion. Results CBC & Chem 7: 05/15/21 08:28 05/15/21 08:28 Labs: Abnormal Lab Results - Last 24 Hours (Table) 05/15/21 05/15/21 Range/Units 08:28 08:28 Hct 46.4 H (34.0-46.0) % Chloride 109 H (98-107) mmol/L Carbon Dioxide 21 L (22-30) mmol/L Glucose 110 H (74-99) mg/dL Thrombosis Risk Factor Assmnt - DVT/VTE Prophylaxis DVT/VTE Prophylaxis: Pharmacologic Prophylaxis ordered - Choose All That Apply Each Risk Factor Represents 2 Points: Age 61-74 years Thrombosis Risk Factor Assessment Total Risk Factor Score: 2 Thrombosis Risk Factor Assessment Level: Low Risk Assessment and Plan Assessment: Palpitations Recent history of SVT. Currently on metoprolol XL 25 mg daily. Hypertension controlled. Previous history of smoking Hyperlipidemia DVT prophylaxis Plan: Patient will continue on telemetry monitoring. We will start back on metoprolol XL and lisinopril and statins. Cardiology was consulted due to recurrent episodes of palpitations. TSH within normal limits. Other laboratory data reviewed. Continue to follow.
[2021-05-16] MEDS: HEPARIN SODIUM,PORCINE/PF 5,000 UNIT/0.5 ML SYRINGE SQ SCH ×2 (07:26→15:21)
[2021-05-16] MEDS: METOPROLOL SUCCINATE (ER) 25 MG TAB.ER.24H PO SCH (07:27)
[2021-05-16] MEDS: lisinopriL 5 MG TAB PO SCH (07:27)
[2021-05-16] MEDS ORDERED: ASPIRIN 325 MG TAB PO SCH (09:00)
--- NOTE | 2021-05-16 09:08 | P.CRDCN ---
History of Present Illness History of present illness: HISTORY OF PRESENTING ILLNESS This is a pleasant 70 year old female with history of palpitations who presents secondary to recurrent palpitations. Patient was just seen 05/11/2021 for simila r presentation. She states that over the last 1 month she has been having episodes which normally last for 1-2 minutes of feeling palpitations, lightheaded and somewhat short of breath. She denies any syncope. She was seen 05/11/2021 and had echocardiogram which showed no significant valvular disease with normal EF. She was discharged home and had another 2 episodes with yesterday occurring again and therefore came to emergency department. It only lasted for 2 minutes and then went away however decided to come to emergency Department. Troponins negative 3, currently states she feels well without any chest pain or pressure. REVIEW OF SYSTEMS At the time of my exam: CONSTITUTIONAL: Denies fever or chills. CARDIOVASCULAR: Denies chest pain, +shortness of breath, no orthopnea, PND, +p alpitations. RESPIRATORY: Denies cough. GASTROINTESTINAL: Denies abdominal pain, diarrhea, constipation, nausea or vomiting. MUSCULOSKELETAL: Denies myalgias. NEUROLOGIC: Denies numbness, tingling or weakness. ENDOCRINE: Denies fatigue, weight change, polydipsia or polyurina. GENITOURINARY: Denies burning, hematuria or urgency with micturation. HEMATOLOGIC: Denies history of anemia or bleeding. PHYSICAL EXAMINATION Vital signs reviewed. CONSTITUTIONAL: No apparent distress. HEENT: Head is normocephalic. Pupils are equal, round. Sclerae anicteric. Mucous membranes of the mouth are moist. No JVD. No carotid bruit. CHEST EXAMINATION: Lungs are clear to auscultation. No chest wall tenderness is noted on palpation or with deep breathing. HEART EXAMINATION: Regular rate and rhythm. S1, S2 heard. No murmurs, gallops or rub. ABDOMEN: Soft, nontender. Positive bowel sounds. EXTREMITIES: 2+ peripheral pulses, no lower extremity edema and no calf tenderness. NEUROLOGIC EXAMINATION: Patient is awake, alert and oriented x3. ASSESSMENT 1. Palpitations 2. Shortness breath 3. Lightheadedness PLAN Patient has had recurrent episodes of palpitations. These have been new over the last 1 month and we will rule out a cardiogenic source, SVT or other. She had recent workup for days ago with normal echo, normal troponins. No events on telemetry overnight however she did not have any symptoms overnight. No further workup inpatient. Patient cleared for discharge however would recommend a 30 day event monitor going home. Follow-up in one week. Would avoid starting medications until a clear diagnosis is made. Past Medical History Past Medical History: Hyperlipidemia, Hypertension Additional Past Medical History / Comment(s): last time pt was seen by a physician was 2002 History of Any Multi-Drug Resistant Organisms: None Reported Past Surgical History: Hysterectomy Past Psychological History: No Psychological Hx Reported Smoking Status: Former smoker Past Alcohol Use History: Occasional Past Drug Use History: None Reported Medications and Allergies Home Medications Medication Instructions Recorded Confirmed Type Atorvastatin [Lipitor] 20 mg PO HS 30 Days #30 tablet 05/12/21 05/15/21 Rx Metoprolol Succinate (ER) [Toprol 25 mg PO DAILY 30 Days #30 tablet 05/12/21 05/15/21 Rx XL] lisinopriL [Zestril] 5 mg PO DAILY 30 Days #30 tab 05/12/21 05/15/21 Rx Allergies Allergy/AdvReac Type Severity Reaction Status Date / Time No Known Allergies Allergy Verified 05/15/21 10:54 Physical Exam Vitals: Vital Signs Temp Pulse Pulse Resp BP BP Pulse Ox 05/16/21 07:36 97 05/16/21 07:00 97.8 F 68 16 152/88 97 05/16/21 01:45 EDT 98.5 F 73 20 131/76 96 05/15/21 19:25 98.1 F 72 22 128/77 97 05/15/21 14:57 98.3 F 84 18 128/75 97 05/15/21 11:50 98.1 F 70 16 144/88 97 05/15/21 11:28 77 153/88 97 05/15/21 11:00 87 20 142/85 96 Intake and Output 05/15/21 05/16/21 05/16/21 23:59 06:59 14:59 Other: Voiding Method Toilet # Voids Results 05/15/21 08:28 05/15/21 08:28 Cardiac Enzymes 05/15/21 05/15/21 Range/Units 12:13 14:34 Troponin I <0.012 <0.012 (0.000-0.034) ng/mL Current Medications Generic Name Dose Route Start Last Admin Trade Name Freq PRN Reason Stop Dose Admin Aspirin 325 mg 05/16/21 09:00 05/16/21 07:27 Aspirin 325 Mg Tab PO 325 mg DAILY KAMI Administration Atorvastatin Calcium 20 mg 05/16/21 21:00 Atorvastatin 20 Mg Tab PO HS KAMI Heparin Sodium (Porcine) 5,000 unit 05/16/21 08:00 05/16/21 07:26 Heparin Sodium,Porcine/Pf 5,000 Unit/0.5 Ml Syringe SQ 5,000 unit Q8HR KAMI Administration Lisinopril 5 mg 05/16/21 09:00 05/16/21 07:27 Lisinopril 5 Mg Tab PO 5 mg DAILY KAMI Administration Metoprolol Succinate 25 mg 05/16/21 09:00 05/16/21 07:27 Metoprolol Succinate (Er) 25 Mg Tab.Er.24h PO 25 mg DAILY KAMI Administration Nitroglycerin 0.4 mg 05/15/21 10:14 Nitroglycerin Sl Tabs 0.4 Mg Tab SUBLINGUAL Q5M PRN Chest Pain Intake and Output 05/15/21 05/16/21 05/16/21 23:59 06:59 14:59 Other: Voiding Method Toilet # Voids 05/15/21 08:28 05/15/21 08:28
[2021-05-16 10:47] LABS: Chol/HDL Ratio 2.99 Ratio; HDL Cholesterol 51.9 mg/dL (40.00-60.00); LDL Cholesterol,Calculated 87.4 mg/dL (0.0-131.0); Triglycerides 78.5 mg/dL (0.00-149.00); VLDL Calculation 15.7 mg/dL (5.00-40.00)
[2021-05-16] MEDS ORDERED: ATORVASTATIN 20 MG TAB PO SCH (21:00)
[2021-05-17] MEDS: HEPARIN SODIUM,PORCINE/PF 5,000 UNIT/0.5 ML SYRINGE SQ SCH ×3 (01:12→15:51)
[2021-05-17 01:56] VITALS: PULSE 62
[2021-05-17] MEDS: lisinopriL 5 MG TAB PO SCH (08:21)
[2021-05-17] MEDS: METOPROLOL SUCCINATE (ER) 25 MG TAB.ER.24H PO SCH (08:21)
[2021-05-17 08:35] VITALS: RESP 16
[2021-05-17] MEDS ORDERED: ASPIRIN 81 MG PO SCH (09:00)
--- NOTE | 2021-05-17 10:48 | P.PN ---
Subjective This is a pleasant 70-year-old female past medical history significant for hysterectomy and hypertension. She does not follow with a [facility] chemist. We have been asked to see in consultation for palpitations. She was seen 05/11/2021 and had echocardiogram which showed no significant valvular disease with normal EF.Troponins negative 3, currently states she feels well without any chest pain or pressure or further palpiations. Denies shortness of breath. Telemetry reviewed, no events overnight. She is maintaining sinus mechanism heart rates in the 60s70s. PHYSICAL EXAMINATION Blood pressure 145/82, heart 60, afebrile maintaining oxygen saturations on room air CONSTITUTIONAL: No apparent distress. HEENT: Neck Supple. No JVD. CHEST EXAMINATION: Lungs are clear to auscultation. No chest wall tenderness is noted on palpation or with deep breathing. HEART EXAMINATION: Regular rate and rhythm. S1, S2 heard. No murmurs, gallops or rub. ABDOMEN: Soft, nontender. Positive bowel sounds. EXTREMITIES: 2+ peripheral pulses, no lower extremity edema and no calf tenderness. NEUROLOGIC EXAMINATION: Patient is awake, alert and oriented x3. ASSESSMENT Palpitations Shortness of breath Hypertension History of hysterectomy Dyslipidemia, lipid panel reviewed, patient with 16.7% 10 year ASCVD risk PLAN Continue home cardiac medications No events on telemetry overnight however she did not have any symptoms overnight. No further workup inpatient. Patient cleared for discharge however would recommend a 30 day event monitor going home. Follow up with Dr. Barnett outpatient. Nurse Practitioner note has been reviewed, I agree with a documented findings and plan of care. Patient was seen and examined. Objective - Vital Signs Vital signs: Vital Signs Temp 98.3 F 05/17/21 07:00 Pulse 62 05/17/21 07:00 Resp 16 05/17/21 07:00 BP 145/82 05/17/21 07:00 Pulse Ox 95 05/17/21 10:00 Intake & Output 05/16/21 05/17/21 05/17/21 18:59 06:59 18:59 Intake Total 118 Balance 118 Intake: Oral 118 Other: Voiding Method Toilet Toilet Toilet # Voids 2 2 - Labs CBC & Chem 7: 05/15/21 08:28 05/15/21 08:28
[2021-05-17 15:39] VITALS: BP 129/84; TEMP 98.1
== END 2021-05-17 16:22 | disposition home or self-care (01) ==
LOC: EC 07:41 → 6NMEDSUR 10:23
PROVIDERS: ADMIT Internal Medicine; ATTEND Internal Medicine
DX: R00.2 Palpitations (principal); R11.0 Nausea; R06.02 Shortness of breath; R42 Dizziness and giddiness; I47.1 Supraventricular tachycardia; I10 Essential (primary) hypertension; Z87.891 Personal history of nicotine dependence; K44.9 Diaphragmatic hernia without obstruction or gangrene; E78.5 Hyperlipidemia, unspecified; Z20.822 Contact with and (suspected) exposure to COVID-19; Z53.29 Procedure and treatment not carried out because of patient's decision for other reasons; Z79.899 Other long term (current) drug therapy; Z90.710 Acquired absence of both cervix and uterus
CPT/HCPCS: 96372 ×2; 99285; 36415; 93005; 93270; 80061; 80053; 83735; 84443; 84484; 85025; 85610; 85730; 87635; 71046; G0378 ×3; J1644 ×2

== ENCOUNTER 2023-12-18 09:23 | Emergency (ER) | payer MEDICARE ==
--- NOTE | 2023-12-18 09:43 | ED ---
General Adult HPI - General Chief complaint: Dizziness Stated complaint: Lightheaded Time Seen by Provider: 12/18/23 09:34 Source: patient, family, RN notes reviewed Mode of arrival: wheelchair Limitations: no limitations - History of Present Illness Initial comments: Patient is a 73-year-old female presenting to the emergency department with concerns for feeling lightheaded. Onset of symptoms was around 1 AM. This did awaken her from sleep. No chest pain. Patient states her blood pressure was high at home, 160/90. Patient does admit to having some exertional dyspnea when questioned. No calf pain or leg swelling. No history of similar symptoms previously. Patient does feel lightheaded. - Related Data Previous Rx's Medication Instructions Recorded Atorvastatin [Lipitor] 20 mg PO HS 30 Days #30 tablet 05/12/21 Metoprolol Succinate (ER) [Toprol 25 mg PO DAILY 30 Days #30 tablet 05/12/21 XL] lisinopriL [Zestril] 5 mg PO DAILY 30 Days #30 tab 05/12/21 Aspirin 81 mg PO DAILY #30 tab 05/17/21 Allergies Allergy/AdvReac Type Severity Reaction Status Date / Time No Known Allergies Allergy Verified 12/18/23 09:33 Review of Systems ROS Statement: Those systems with pertinent positive or pertinent negative responses have been documented in the HPI. ROS Other: All systems not noted in ROS Statement are negative. Constitutional: Denies: fever Eyes: Denies: eye pain ENT: Denies: ear pain Respiratory: Denies: cough Cardiovascular: Reports: as per HPI, dyspnea on exertion. Denies: chest pain Endocrine: Denies: fatigue Gastrointestinal: Denies: abdominal pain Neurological: Denies: headache, weakness, confusion Past Medical History Past Medical History: Hyperlipidemia, Hypertension Additional Past Medical History / Comment(s): last time pt was seen by a physician was 2002 History of Any Multi-Drug Resistant Organisms: None Reported Past Surgical History: Hysterectomy, Tubal Ligation Past Psychological History: No Psychological Hx Reported Smoking Status: Former smoker Past Alcohol Use History: Occasional Past Drug Use History: None Reported General Exam Limitations: no limitations General appearance: alert, in no apparent distress Head exam: Present: normocephalic Eye exam: Present: normal appearance Neck exam: Present: normal inspection Respiratory exam: Present: normal lung sounds bilaterally Cardiovascular Exam: Present: tachycardia GI/Abdominal exam: Present: soft. Absent: tenderness Extremities exam: Present: normal inspection. Absent: pedal edema, calf tenderness Neurological exam: Present: alert, oriented X3, CN II-XII intact. Absent: motor sensory deficit Psychiatric exam: Present: normal affect, normal mood Skin exam: Present: normal color Course Vital Signs 12/18/23 12/18/23 12/18/23 09:29 11:28 12:02 Temperature 98.4 F Pulse Rate 111 H 84 117 H Respiratory 18 18 20 Rate Blood Pressure 141/91 125/84 O2 Sat by Pulse 96 93 L 95 Oximetry EKG Findings - EKG Results: EKG: interpreted by LIZD (First-degree AV block with a NH of 215. Occasional premature supraventricular beat. Septal Q waves.), sinus rhythm, normal ST/T Medical Decision Making - Medical Decision Making Was pt. sent in by a medical professional or institution ([facility], ELECTRICAL AND INSTRUMENT ENGINEER, urgent care, hospital, or fdc...) When possible be specific @ -Patient was at the clinic earlier Did you speak to anyone other than the patient for history (EMS, parent, family, police, friend...)? What history was obtained from this source @ -No Did you review nursing and triage notes (agree or disagree)? Why? @ -I reviewed and agree with nursing and triage notes Were old charts reviewed (outside hosp., previous admission, EMS record, old EKG, old radiological studies, urgent care reports/EKG's, fdc records)? Report findings @ -No old charts were reviewed Differential Diagnosis (chest pain, altered mental status, abdominal pain women, abdominal pain men, vaginal bleeding, weakness, fever, dyspnea, syncope, headache, dizziness, GI bleed, back pain, seizure, CVA, palpatations, mental health, musculoskeletal)? @ -Differential Dizziness: Benign paroxysmal positional Vertigo, Menieres disease, otitis media, acoustic neuroma, vertebrobasilar insufficiency, cerebellar stroke, encephalitis, hypovolemic, arrhythmia, coronary artery syndrome, anemia, this is not meant to be an all-inclusive list EKG interpreted by me (3pts min.). @ -As above X-rays interpreted by me (1pt min.). @ -Chest x-ray shows hiatal hernia CT interpreted by me (1pt min.). @ -None done U/S interpreted by me (1pt. min.). @ -None done What testing was considered but not performed or refused? (CT, X-rays, U/S, labs)? Why? @ -None What meds were considered but not given or refused? Why? @ -None Did you discuss the management of the patient with other professionals (professionals i.e. , PA, ELECTRICAL AND INSTRUMENT ENGINEER, lab, RT, psych nurse, psychotherapist social worker, communications technologist, teacher, property officer, case management director)? Give summary @ -No Was smoking cessation discussed for >3mins.? @ -No Was critical care preformed (if so, how long)? @ -No Were there social determinants of health that impacted care today? How? (Homelessness, low income, unemployed, alcoholism, drug addiction, transpo rtation, low edu. Level, literacy, decrease access to med. care, assisted, rehab)? @ -No Was there de-escalation of care discussed even if they declined (Discuss DNR or withdrawal of care, Hospice)? DNR status @ -No What co-morbidities impacted this encounter? (DM, HTN, Smoking, COPD, CAD, Cancer, CVA, ARF, Chemo, Hep., AIDS, mental health diagnosis, sleep apnea, morbid obesity)? @ -None Was patient admitted / discharged? Hospital course, mention meds given and route, prescriptions, significant lab abnormalities, going to OR and other pertinent info. @ -Patient presents with concerns for high blood pressure as well as lightheadedness. Evaluation does not reveal acute abnormalities. Blood p ressure and vital signs stable. Patient feels better and is comfortable with discharge home. Patient will be discharged with follow-up with primary care physician. Undiagnosed new problem with uncertain prognosis? @ -No Drug Therapy requiring intensive monitoring for toxicity (Heparin, Nitro, Ins ulin, Cardizem)? @ -No Were any procedures done? @ -No Diagnosis/symptom? @ -Lightheadedness Acute, or Chronic, or Acute on Chronic? @ -Acute Uncomplicated (without systemic symptoms) or Complicated (systemic symptoms)? @ -Default Side effects of treatment? @ -No Exacerbation, Progression, or Severe Exacerbation? @ -No Poses a threat to life or bodily function? How? (Chest pain, [place], [place], pneumonia, PE, COPD, DKA, ARF, appy, cholecystitis, CVA, Diverticulitis, Homicidal, Suicidal, threat to staff... and all critical care pts) @ -No - Lab Data Result diagrams: 12/18/23 10:07 12/18/23 10:07 Lab Results 12/18/23 12/18/23 12/18/23 Range/Units 10:07 10:07 10:07 WBC 8.1 (3.8-10.6) k/uL RBC 5.29 (3.80-5.40) m/uL Hgb 15.6 (11.4-16.0) gm/dL Hct 48.6 H (34.0-46.0) % MCV 91.8 (80.0-100.0) fL MCH 29.5 (25.0-35.0) pg MCHC 32.2 (31.0-37.0) g/dL RDW 13.4 (11.5-15.5) % Plt Count 401 (150-450) k/uL MPV 7.6 Neutrophils % 74 % Lymphocytes % 17 % Monocytes % 6 % Eosinophils % 2 % Basophils % 1 % Neutrophils # 6.0 (1.3-7.7) k/uL Lymphocytes # 1.4 (1.0-4.8) k/uL Monocytes # 0.5 (0-1.0) k/uL Eosinophils # 0.1 (0-0.7) k/uL Basophils # 0.1 (0-0.2) k/uL PT 10.8 (10.0-12.5) sec INR 1.0 (<1.2) APTT 26.6 (22.0-30.0) sec D-Dimer 0.39 (<0.60) mg/L FEU Sodium 138 (137-145) mmol/L Potassium 4.0 (3.5-5.1) mmol/L Chloride 112 H (98-107) mmol/L Carbon Dioxide 19 L (22-30) mmol/L Anion Gap 7 mmol/L BUN 14 (7-17) mg/dL Creatinine 0.68 (0.52-1.04) mg/dL Est GFR (CKD-EPI)AfAm >90 (>60 ml/min/1.73 sqM) Est GFR (CKD-EPI)NonAf 86 (>60 ml/min/1.73 sqM) Glucose 133 H (74-99) mg/dL Plasma Lactic Acid Db (0.7-2.0) mmol/L Calcium 9.0 (8.4-10.2) mg/dL Magnesium 1.9 (1.6-2.3) mg/dL Total Bilirubin 0.6 (0.2-1.3) mg/dL AST 23 (14-36) U/L ALT 19 (4-34) U/L Alkaline Phosphatase 64 (38-126) U/L Troponin I (0.000-0.034) ng/mL NT-Pro-B Natriuret Pep 211 pg/mL Total Protein 7.2 (6.3-8.2) g/dL Albumin 4.5 (3.5-5.0) g/dL TSH 1.030 (0.465-4.680) mIU/L Free T4 1.44 (0.78-2.19) ng/dL Urine Color Urine Appearance (Clear) Urine pH (5.0-8.0) Ur Specific [place] (1.001-1.035) Urine Protein (Negative) Urine Glucose (UA) (Negative) Urine Ketones (Negative) Urine Blood (Negative) Urine Nitrite (Negative) Urine Bilirubin (Negative) Urine Urobilinogen (<2.0) mg/dL Ur Leukocyte Esterase (Negative) Urine WBC (0-5) /hpf Ur Squamous Epith Cells (0-4) /hpf Urine Bacteria (None) /hpf Urine Mucus (None) /hpf 12/18/23 12/18/23 12/18/23 Range/Units 10:07 10:07 10:46 WBC (3.8-10.6) k/uL RBC (3.80-5.40) m/uL Hgb (11.4-16.0) gm/dL Hct (34.0-46.0) % MCV (80.0-100.0) fL MCH (25.0-35.0) pg MCHC (31.0-37.0) g/dL RDW (11.5-15.5) % Plt Count (150-450) k/uL MPV Neutrophils % % Lymphocytes % % Monocytes % % Eosinophils % % Basophils % % Neutrophils # (1.3-7.7) k/uL Lymphocytes # (1.0-4.8) k/uL Monocytes # (0-1.0) k/uL Eosinophils # (0-0.7) k/uL Basophils # (0-0.2) k/uL PT (10.0-12.5) sec INR (<1.2) APTT (22.0-30.0) sec D-Dimer (<0.60) mg/L FEU Sodium (137-145) mmol/L Potassium (3.5-5.1) mmol/L Chloride (98-107) mmol/L Carbon Dioxide (22-30) mmol/L Anion Gap mmol/L BUN (7-17) mg/dL Creatinine (0.52-1.04) mg/dL Est GFR (CKD-EPI)AfAm (>60 ml/min/1.73 sqM) Est GFR (CKD-EPI)NonAf (>60 ml/min/1.73 sqM) Glucose (74-99) mg/dL Plasma Lactic Acid Db 1.1 (0.7-2.0) mmol/L Calcium (8.4-10.2) mg/dL Magnesium (1.6-2.3) mg/dL Total Bilirubin (0.2-1.3) mg/dL AST (14-36) U/L ALT (4-34) U/L Alkaline Phosphatase (38-126) U/L Troponin I <0.012 (0.000-0.034) ng/mL NT-Pro-B Natriuret Pep pg/mL Total Protein (6.3-8.2) g/dL Albumin (3.5-5.0) g/dL TSH (0.465-4.680) mIU/L Free T4 (0.78-2.19) ng/dL Urine Color Colorless Urine Appearance Cloudy H (Clear) Urine pH 6.0 (5.0-8.0) Ur Specific [place] 1.010 (1.001-1.035) Urine Protein Negative (Negative) Urine Glucose (UA) Negative (Negative) Urine Ketones Negative (Negative) Urine Blood Negative (Negative) Urine Nitrite Negative (Negative) Urine Bilirubin Negative (Negative) Urine Urobilinogen <2.0 (<2.0) mg/dL Ur Leukocyte Esterase Negative (Negative) Urine WBC 2 (0-5) /hpf Ur Squamous Epith Cells 11 H (0-4) /hpf Urine Bacteria Rare H (None) /hpf Urine Mucus Rare H (None) /hpf Disposition Clinical Impression: Lightheadedness Disposition: HOME SELF-CARE Condition: Stable Instructions (If sedation given, give patient instructions): Dizziness (ED) Additional Instructions: Please do follow-up with your primary care physician in the next 1 or 2 days for recheck. Return for increased lightheadedness, uncontrolled blood pressure, weakness, shortness of breath, worsening symptoms or other concerns Is patient prescribed a controlled substance at d/c from ED?: No Referrals: Sarmad Veloz MD [Primary Care Provider] - 1-2 days Time of Disposition: 12:07
[2023-12-18 10:18] LABS: Basophils # (A) 0.1 k/uL (0-0.2); Basophils % (A) 1 %; Eosinophils # (A) 0.1 k/uL (0-0.7); Eosinophils % (A) 2 %; HCT 48.6 % (34.0-46.0); HGB 15.6 gm/dL (11.4-16.0); Lymphocytes # (A) 1.4 k/uL (1.0-4.8); Lymphocytes % (A) 17 %; MCH 29.5 pg (25.0-35.0); MCHC 32.2 g/dL (31.0-37.0); MCV 91.8 fL (80.0-100.0); Mean Platelet Volume 7.6; Monocytes # (A) 0.5 k/uL (0-1.0); Monocytes % (A) 6 %; Neutrophils % (A) 74 %; Platelet Count 401 k/uL (150-450); RBC 5.29 m/uL (3.80-5.40); RDW 13.4 % (11.5-15.5); WBC 8.1 k/uL (3.8-10.6)
[2023-12-18] MEDS: LORazepam 2 MG/ML INJ IV STA (10:32)
[2023-12-18 10:35] LABS: Partial Thromboplastin Time 26.6 sec (22.0-30.0); Prothrombin Time 10.8 sec (10.0-12.5)
[2023-12-18 10:41] LABS: ALT 19 U/L (4-34); AST 23 U/L (14-36); African American GFR (CKD) >90 (>60 ml/min/1.73 sqM); Albumin 4.5 g/dL (3.5-5.0); Alkaline Phosphatase 64 U/L (38-126); Anion Gap 7 mmol/L; Blood Urea Nitrogen 14 mg/dL (7-17); Carbon Dioxide 19 mmol/L (22-30); Chloride 112 mmol/L (98-107); Glucose 133 mg/dL (74-99); Magnesium 1.9 mg/dL (1.6-2.3); Non-African American GFR(CKD) 86 (>60 ml/min/1.73 sqM); Sodium 138 mmol/L (137-145); Total Bilirubin 0.6 mg/dL (0.2-1.3); Total Protein 7.2 g/dL (6.3-8.2)
[2023-12-18 10:50] LABS: NT-Pro-B-Type Natriuretic Pept 211 pg/mL
[2023-12-18 10:58] LABS: T4, Free (Free Thyroxine) 1.44 ng/dL (0.78-2.19)
--- NOTE | 2023-12-18 11:13 | XR ---
EXAMINATION TYPE: XR chest 2V DATE OF EXAM: 12/18/2023 COMPARISON: 05/15/2021 HISTORY: 73-year-old female with weakness and elevated blood pressure TECHNIQUE: PA and lateral views FINDINGS: Large rounded retrocardiac density. Heart appears upper limits of normal in size. Hyperinflation. Mil d interstitial prominence appears chronic. No consolidation or pleural effusion. IMPRESSION: 1. Underlying large hiatal hernia. Most of the stomach may be in the chest and may have enlarged comp ared to 2020. 2. Hyperinflation good reflect depth of inspiration or underlying emphysema. Clinically correlate. Ot herwise, no acute process seen.
[2023-12-18 11:15] LABS: Appearance,Urine Cloudy (Clear); Bacteria,Urine Rare /hpf; Bilirubin,Urine Negative (Negative); Blood,Urine Negative (Negative); Color,Urine Colorless; Glucose,Urine (UA) Negative (Negative); Ketones,Urine Negative (Negative); Leukocyte Esterase,Urine Negative (Negative); Mucus,Urine Rare /hpf; Nitrite,Urine Negative (Negative); Protein,Urine Negative (Negative); Squamous Epithelial Cell,Urine 11 /hpf (0-4); Urobilinogen,Urine <2.0 mg/dL (<2.0); WBC,Urine 2 /hpf (0-5)
[2023-12-18 11:56] VITALS: BP 125/84
[2023-12-18 12:05] VITALS: PULSE 88; RESP 18; TEMP 98.2
== END 2023-12-18 12:29 | disposition home or self-care (01) ==
LOC: EC 09:23
DX: I44.0 Atrioventricular block, first degree (principal); Z87.891 Personal history of nicotine dependence
CPT/HCPCS: 99284 ×2; 96374 ×2; 36415; 93005; 85379; 84439; 84481; 83880; 80053; 83605; 83735; 84443; 84484; 85025; 85610; 85730; 81001; 71046; J2060